=== PATIENT | male | born 2000 | race Caucasian/White ===

== ENCOUNTER 2019-12-31 10:01 | Emergency (ER) | payer SELFPAY ==
[2019-12-31 10:02] VITALS: BP 138/80; PULSE 68; RESP 16; TEMP 36.6; O2SAT 100; BMI 20.1
--- NOTE | 2019-12-31 10:13 | RAD_ITS ---
STUDY: X-RAY - LUMBAR SPINE REASON FOR EXAM: Male, 19 years old. LOW BACK PAIN TECHNIQUE: 3 view(s) of the lumbar spine were obtained. COMPARISON: None FINDINGS: Normal lumbar lordosis. There is no substantial scoliosis. There is a normal alignment of the vertebrae. Normal vertebral bodies and endplates. Normal disc space heights. Spina bifida occulta at the S1 level. The soft tissue structures are unremarkable. RAD/Lumbar Spine 2 or 3 Views IMPRESSION: Normal x-ray examination of the lumbar spine. Electronically Signed: Pravin Schmidt, at 10:36 EST , Service support ,
--- NOTE | 2019-12-31 10:23 | ED.DCSUM_ITS ---
History of Present Illness Chief Complaint: Back Informant: Patient Onset: Today Context: Gradual Onset Timing: Continuous Current Severity: Moderate Maximum Severity: Moderate Narrative: Patient presents to the emergency department multiple complaints. He states over the past year, he is had pain in both hands. He thinks he may have carpal tunnel. He states it is worse when he wakes up in the morning. He will get tingling and paresthesias in both hands. He is right-hand dominant. He states that he thinks it is related to work. 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 He denies any new symptoms, but states that he has not had that evaluated. He also had some tightness in his low back this morning when he woke up. It is worse with to twist or bend. He denies any specific trauma. The pain does not radiate down his legs. He denies any trouble urinating or moving his bowels. Rashad kauffman is still able to ambulate. Prior similar symptoms: No Recent Illness/Hospitalization: No Past Medical History - Allergies and Home Meds Allergies/Adverse Reactions: Allergies amoxicillin trihydrate [From Augmentin] Allergy (Verified 12/31/19 10:01) Hives potassium clavulanate [From Augmentin] Allergy (Verified 12/31/19 10:01) [facility] Primary Care Physician: Wm Hughes DO [STAFF PHYSICIAN] - Prior records reviewed: Yes Past Medical History: None Surgical History: no surgical history Smoking Status: Never smoker Review of Systems General: Denies: Chills, Fever, Sweats Eyes: Denies: Visual changes - bilaterally, Diplopia ENT: Denies: Rhinorrhea, Sore throat Cardiovascular: Denies: Chest pain, Palpitations Respiratory: Denies: Dyspnea, Cough, Dyspnea on exertion Gastrointestinal: Denies: Abdominal pain, Nausea, Vomiting, Diarrhea, Melena, Hematochezia Genitourinary: Denies: Dysuria, Hematuria, Frequency Musculoskeletal: Reports: Myalgias, Back pain. Denies: Extremity Pain Skin: Denies: Rash, Wounds Neurological: Denies: Headache, Weakness, Numbness Physical Exam Vital Signs/Narrative: Vital Signs Temp Pulse Resp BP Pulse Ox 12/31/19 10:02 97.8 F 68 16 138/80 H 100 Inital Vital Signs reviewed: Yes General: Well nourished, Well developed, No Acute Distress Head: Normocephalic, Atraumatic Eyes: Perrl, EOMI ENT: Moist mucous membranes, No rhinorrhea Neck: Supple, Nontender Cardiovascular: Regular rate, Regular rhythm, No murmurs Respiratory: No distress, CTA bilaterally, Chest nontender Abdomen: Soft, Nontender, Nondistended, Normal bowel sounds Back: Normal Inspection. Negative for: CVA tenderness, Spinal tenderness Extremities: Nontender, No edema Skin: Normal color, No rash Neurological: Alert, Oriented x3, Cranial nerves II-XII grossly intact, Normal Strength, Normal Sensation Psychological: Normal affect, Normal Mood Diagnostic/Tx/Re-eval Clinical Impression(s) from Imaging Studies Lumbar Spine X-Ray 12/31/19 10:13 IMPRESSION: Normal x-ray examination of the lumbar spine. Electronically Signed: Pravin Knappilene, at 10:36 EST , Service support , - Medical Decision Making Clinically, just the patient likely has carpal tunnel. He has normal pulses. He has diminished sensation in the hands with hyperflexion. He has had no trauma. I do not feel that imaging is necessary. I did obtain plain films of his low back which were unremarkable for acute process. I am going to place the patient in bilateral pre-fabricated velcro wrist splints and give him a short Medrol Dosepak. He will also be given outpatient orthopedic follow-up. He is comfortable with this plan of care. Impression 1. Musculoskeletal low back pain 2. Carpal tunnel ED Disposition - Plan for ED Patient: Instructions: BACK SPASM, No Trauma Prescriptions: MethylPREDNISolone DosePak [Medrol DosePak] 4 mg PO UD #1 box Prescription Printed Referrals: Wm Hughes DO [STAFF PHYSICIAN] -
== END 2019-12-31 11:19 | disposition home or self-care (01) ==
LOC: ED 10:39
PROVIDERS: Emergency Provider Emergency Medicine; PCP Family Medicine
DX: M54.5 Low back pain (principal); G56.03 Carpal tunnel syndrome, bilateral upper limbs
CPT/HCPCS: 72100; 99284